=== PATIENT | female | born 1945 | race Caucasian/White ===

== ENCOUNTER 2023-08-05 09:24 | Day surgery (SDC) | payer MEDICARE, SELFPAY ==
[2023-08-05 09:37] VITALS: BP 139/87; PULSE 79; RESP 18; TEMP 36.7; O2SAT 96
[2023-08-05] MEDS: Tropicam./Phenyleph. (1/2.5%) 5 ML BTL OS ×3 (09:57→10:07)
--- NOTE | 2023-08-05 10:07 | ANES.PREOP_ITS ---
General Info Date of Service Date Performed: 08/05/23 Height: 5 ft Weight: 91.8 kg Body Mass Index (BMI): 39.5 Surgical Procedure: Operation Date: 08/05/23 12:40 Proposed Procedure Side Surgeon p Cataract Extraction with IOL Implant Left Martín Cobian MD Meds Allergies and Home Medications Allergies Allergy/AdvReac Type Severity Reaction Status Date / Time No Known Allergies Allergy Verified 08/05/23 09:49 Home Medication Medication Instructions Recorded calcium 600 mg capsule 600 mg PO DAILY 08/03/23 fluoxetine 20 mg capsule 20 mg PO DAILY 08/03/23 fluoxetine 40 mg capsule 40 mg PO DAILY 08/03/23 ibuprofen 200 mg tablet 200 mg PO DAILY 08/03/23 levothyroxine 75 mcg tablet 75 mcg PO DAILY 08/03/23 rosuvastatin 10 mg tablet 10 mg PO DAILY 08/03/23 trazodone 50 mg tablet 50 mg PO HS 08/03/23 Current Visit Medications: Current Medications Generic Name Dose Route Start Last Admin Trade Name Freq PRN Reason Stop Dose Admin Acetaminophen 1,000 mg 08/05/23 06:00 Acetaminophen 500 Mg Tab PO 09/04/23 05:59 Q4H PRN PRN Balanced Salt Solution 500 ml 08/05/23 06:00 Balanced Salt Soln.-Plus 500 Ml Bag OP 09/04/23 05:59 DIRECTED [facility] Miscellaneous Medication 0 ml 08/05/23 06:00 Prednisolone 1%, Moxifloxacin 0.5%, Nepafenac 0.1% 5ml Btl OS 09/04/23 05:59 DIRECTED [facility] Miscellaneous Medication 0 ml 08/05/23 06:00 08/05/23 10:02 Tropicam./Phenyleph. 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 eye H25.042 Medical History Medical History Arthritis Bladder incontinence Depression HLD (hyperlipidemia) Insomnia Thyroid dysfunction Surgical History Surgical History (Updated 08/05/23 @ 09:49 by Sailaja Tejada RN) Hx of hysterectomy Hx of total knee replacement Tobacco Smoking/Tobacco Use Status: Former Tobacco Use Alcohol Alcohol Intake: never Substance Use Substance use type: does not use Vital Signs and Lab Results Vital Signs Most Recent Vital Signs in EMR: Most Recent Vital Signs Temp Pulse Resp BP Pulse Ox 36.7 C 79 18 139/87 96 08/05/23 09:37 08/05/23 09:37 08/05/23 09:37 08/05/23 09:37 08/05/23 09:37 Lab Results Blood Type / Crossmatch: No Data to Display Complete Blood Count: No Data to Display Complete Metabolic Panel: No Data to Display Liver Function Panel: No Data to Display Coagulation Panel: No Data to Display Cardiac Panel: No Data to Display Arterial Blood Gas: No Data to Display Venous Blood Gas: No Data to Display Pancreas Panel: No Data to Display Thyroid Panel: No Data to Display Infectious Disease: No Data to Display Blood Cultures: No Data to Display Toxicology Panel: No Data to Display Anesthesia Assessment and Plan Anesthesia History Personal History: No History of Anesthesia Complications Family History: No Family History of Anesthesia Complications Exercise Tolerance Exercise Tolerance: Metabolic Equivalents>4 Pertinent Negatives Pertinent Negatives: No Symptoms of GERD, No Major Cardiovascular Symptoms or Complaints and No Major Pulmonary Symptoms or Complaints Cardiac & Pulmonary Exam Cardiac Exam: Normal S1/S2 Heart Sounds Pulmonary Exam: Clear Bilateral Breath Sounds Implantable Cardiac Device Does patient have a Pacemaker or an ICD?: No Airway Exam Known Difficult Airway: No Mallampati Class: 3 Mouth Opening: Normal (> 3cm) Thyromental Distance: Greater than 3 cm Neck Range of Motion: Full ROM Neck Circumference: Normal Teeth Condition: Normal Dentition ASA Classification ASA Score: ASA 3 Emergency Case?: No NPO Status NPO Status: NPO Clears >2 hours, Solids >8 hours Anesthesia Plan Resuscitation Status: Full Code Anesthesia Technique: MAC Anesthesia Airway Planned: Natural Airway Monitors Used: Standard Monitors
[2023-08-05 10:26] VITALS: BMI 39.5
[2023-08-05] MEDS: Tetracaine 0.5% 4 ML BTL OS (11:23)
[2023-08-05] MEDS: Povidone-Iodine Ophth 30 ML BTL (11:25)
[2023-08-05] MEDS: Balanced Salt Soln.-PLUS 500 ML BAG OP (11:28)
[2023-08-05] MEDS: Phenylephrine/Lidocaine (15/10) MG/ML 1 ML VIAL (11:28)
[2023-08-05] MEDS: Duovisc Viscoelastic System EACH 1 EACH (11:28)
[2023-08-05] MEDS: Lidocaine 1% Pres-Free 5 ML VIAL (11:28)
[2023-08-05 11:46] VITALS: BP 125/96; PULSE 67; RESP 18; TEMP 36.8; O2SAT 96
--- NOTE | 2023-08-05 11:47 | PDOC.DSDIS_ITS ---
Date of service: 08/05/23 Time of Service: 11:47 Discharge Plan Disposition Patient Disposition: Home Discharge Details Attending Provider: Martín Cobian Primary Care Provider: Shaji Mcmanus [facility] (Former[facility]) and New Rx's Prescriptions: No Action fluoxetine 40 mg Capsule 40 mg PO DAILY calcium 600 mg Capsule 600 mg PO DAILY trazodone 50 mg Tablet 50 mg PO HS levothyroxine 75 mcg Tablet 75 mcg PO DAILY ibuprofen 200 mg Tablet 200 mg PO DAILY fluoxetine 20 mg Capsule 20 mg PO DAILY rosuvastatin 10 mg Tablet 10 mg PO DAILY Discharge Instructions Stand Alone Forms: Post-op Topical Cataract, Mary Wilson ([facility]) Discharge Orders Discharge Orders: Discharge Order (Routine); Ordered 08/05/23 Ordered By: Martín Cobian DS: Diagnosis Discharge Diagnosis (1) Nuclear age-related cataract, left eye: Status: Resolved (2) Cortical age-related cataract, left eye: Status: Resolved (3) Posterior subcapsular age-related cataract of left eye: Status: Resolved
--- NOTE | 2023-08-05 11:50 | ROE_ITS ---
Date of service: 08/05/23 Time of Service: 11:50 Operative Note Operative Note DATE OF PROCEDURE: 08/05/23 PRE-OP DIAGNOSIS: Nuclear/cortical/posterior subcapsular cataract, left eye POST-OP DIAGNOSIS: same PROCEDURE: Cataract extraction using phacoemulsification with intraocular lens implant, left eye SURGEON: Martín Cobian ANESTHESIA TYPE: Local By Surgeon and MAC Refer to Anesthesia Record PATHOLOGY: none sent COMPLICATIONS: None Patient was transported to: same day Patient's condition: stable Implants: Nolberto Clareon [id number] Indications: Progressive decreased vision due to cataract, left eye Procedure Description: CATARACT SURGERY OPERATIVE REPORT PREOPERATIVE DIAGNOSIS: Nuclear/cortical/posterior subcapsular cataract, left eye POSTOPERATIVE DIAGNOSIS: Same OPERATION: Cataract extraction using phacoemulsification with posterior chamber intraocular lens implant, left eye. IOL: IOL Byproducts Maker/Model: Nolberto Clareon [id number] IOL Power: + 22.0 diopters IOL Serial Number: [id number] Optic Diameter: 6.0mm Haptic/Overall Diameter: 13.0mm PHACO INFO: Nolberto[employer]awar Entertainment[employer]ion Vision System with OZil and Active Fluidics Cumulative Dispersed Energy (CDE): 7.34 seconds SURGEON: Martín Cobian MD, KOJO ANESTHESIA: Monitored Anesthesia Care (MAC), with local sub-tenon's anesthetic infiltration COMPLICATIONS: None SPECIMENS: None INDICATIONS FOR PROCEDURE: The patient is a 77-year-old lady with history of diminished visual acuity in her left eye secondary to the development of nuclear/cortical/posterior subcapsular cataract. She is significantly symptomatic that she desires cataract surgery and attempt to improve and maximize her vision. The option of cataract surgery was offered to the patient and she wished to proceed. See office notes for detailed information. PROCEDURE: The correct surgical eye was identified and marked as the left eye and the pupil was dilated in the preoperative area using mydriatics and cycloplegics. The dilated pupil size was 7.0 mm. The patient elected to pr oceed without oral sedation. The patient was brought to the operating room where cardiopulmonary monitoring was instituted and surgical time-out was performed, confirming the correct operative eye and IOL power. Topical anesthesia was administered and ophthalmic povidone-iodine 5% was instilled into the conjunctival fornices. The vlad-ocular area was prepped with Betadine 10% solution and draped in the usual sterile fashion for intraocular surgery, including an aperture drape. A Tegaderm transparent film dressing was cut in half and used to cover the lashes and lid margins. Care was taken to sequester the lashes and lid margins under the Tegaderm dressing. A lid speculum was placed between the lids of the operative eye and the Nolberto LuxOR Revalia operating microscope was maneuvered into position. Norbert scissors were then used to make a conjunctival buttonhole approximately 6mm posterior to the limbus in the inferonasal quadrant. Blunt dissection was carried out to expose bare sclera, and a blunt-tipped sub-tenon?s anesthesia cannula was introduced and passed posteriorly along the globe where non- preserved plain lidocaine was injected into posterior sub-Tenon?s space. A sideport knife was used to make a paracentesis port. Intraocular phenylephrine/lidocaine was injected into the anterior chamber. The anterior chamber was then filled with viscoelastic. A keratome knife was used construct a two-plane clear corneal tunnel extending 2.0mm into clear cornea. A flap was raised on the anterior capsule and capsulorhexis forceps were used to complete a continuous curvilinear capsulorhexis of 5.5 mm. Balanced salt solution was then used to perform cortical cleaving hydrodissection and nuclear hydrodelineation until the lens could be freely rotated within the capsular bag. The lens nucleus was then disassembled and removed within the capsular bag and iris plane using phacoemulsification. Residual cortical material was removed using the irrigation/aspiration handpiece. The posterior capsule was carefully polished to remove as much residual lens epithelial cells as safely possible. The capsular bag was then inflated and the anterior chamber deepened with viscoelastic. The lens implant described above was inserted into the capsular bag using the Nolberto Autonome Injector. A Kuglen hook was used to dial the IOL into position. Residual viscoelastic was then removed first from posterior to the IOL, then from the anterior chamber using the I/A handpiece. The lens implant was noted to center nicely within the capsular bag. The incisions were stromally hydrated, and the anterior chamber was reformed using BSS. Then 0.5cc of moxifloxacin 1.0mg/ml were injected into the capsular bag and anterior chamber. The incisions were checked with a Weck spear and found to be secure. Several drops of ophthalmic povidone-iodine 5% were then applied to the eye followed by two drops of Imprimis combination prednisolone/moxifloxacin/nepafenac solution. The drapes were removed and a clear plastic protective eye shield was placed over the eye. The patient was then returned to Same Day Surgery in stable condition.
--- NOTE | 2023-08-05 11:56 | W.ANESPOSTOP ---
Postoperative Evaluation Date, Time and Location Date Performed: 08/05/23 Time Performed: 11:57 Patient Location: Day Surgery Unit Vital Signs Most Recent Imported Vital Signs: Most Recent Vital Signs Temp Pulse Resp BP Pulse Ox 36.8 C 67 18 125/96 H 96 08/05/23 11:46 08/05/23 11:46 08/05/23 11:46 08/05/23 11:46 08/05/23 11:46 Pain Score Most Recent Pain Score: Most Recent Pain Score Pain Level 0 08/05/23 11:46 Assessment Mental Status: Awake (Alert & Oriented to Patient Baseline) Airway and Respiratory Function: Patent airway with normal (patient baseline) respiratory exam Cardiovascular Function: Hemodynamically Stable Hydration Status: Adequately Hydrated Nausea & Vomiting: No Nausea or Vomiting Pain: Pt. Denies Any Pain Peripheral Nerve Block: Patient did not receive a nerve block
--- NOTE | 2023-08-05 12:00 | W.ANESPOSTOP ---
Postoperative Evaluation Date, Time and Location Date Performed: 08/05/23 Time Performed: 12:00 Patient Location: Day Surgery Unit Vital Signs Most Recent Imported Vital Signs: Most Recent Vital Signs Temp Pulse Resp BP Pulse Ox 36.8 C 67 18 125/96 H 96 08/05/23 11:46 08/05/23 11:46 08/05/23 11:46 08/05/23 11:46 08/05/23 11:46 Most Recent Vital Signs Temp Pulse Resp BP Pulse Ox 36.8 C 67 18 125/96 H 96 08/05/23 11:46 08/05/23 11:46 08/05/23 11:46 08/05/23 11:46 08/05/23 11:46 Pain Score Most Recent Pain Score: Most Recent Pain Score Pain Level 0 08/05/23 11:46 Assessment Mental Status: Awake (Alert & Oriented to Patient Baseline) Airway and Respiratory Function: Patent airway with normal (patient baseline) respiratory exam Cardiovascular Function: Hemodynamically Stable Hydration Status: Adequately Hydrated Nausea & Vomiting: No Nausea or Vomiting Pain: Pt. Denies Any Pain Peripheral Nerve Block: Patient did not receive a nerve block
== END 2023-08-05 12:05 | disposition home or self-care (01) ==
LOC: SUR 09:25
PROVIDERS: PCP Internal Medicine; Visit Provider Ophthalmology
PROC: (CPT 66984; principal; 2023-08-05 12:30)
DX: H25.12 Age-related nuclear cataract, left eye (principal); H25.012 Cortical age-related cataract, left eye; H25.042 Posterior subcapsular polar age-related cataract, left eye
CPT/HCPCS: 66984; V2632

== ENCOUNTER 2023-08-19 09:28 | Day surgery (SDC) | payer MEDICARE, SELFPAY ==
--- NOTE | 2023-08-19 06:48 | HPE_ITS ---
Assessment and Plan Assessment and plan (1) Posterior subcapsular age-related cataract, right eye: Status: Acute Assessment and plan: Assessment: Visually significant cataract of the right eye. Plan: Cataract extract with lens implantation of the right eye. (2) Cortical age-related cataract, right eye: Status: Acute Assessment and plan: Assessment: Visually significant cataract of the right eye. Plan: Cataract extract with lens implantation of the right eye. (3) Nuclear age-related cataract, right eye: Status: Acute Assessment and plan: Assessment: Visually significant cataract of the right eye. Plan: Cataract extract with lens implantation of the right eye. History of Present Illness History of Present Illness Chief Complaint: Progressive decreased vision, right eye Narrative: The patient is a 76-year-old lady referred with complaints of progressive decreased vision in both eyes. She notes difficulty with blurred vision at both distance and near. She can no longer thread a needle. She cannot drive at night due to glare, and even has difficulty in daytime due to severe glare. On examination she was noted to have visually significant bilateral cataract, and underwent cataract surgery in the left eye on 08/05/2023. Postoperatively, she has regained uncorrected visual acuity of 20/20 in the left eye. She now presents for cataract surgery in the right eye. Review of Systems All systems reviewed & are unremarkable except as noted in HPI and below PFSH All Active Problems Posterior subcapsular age-related cataract, right eye (Acute) Cortical age-related cataract, right eye (Acute) Nuclear age-related cataract, right eye (Acute) Medical History Insomnia Bladder incontinence Thyroid dysfunction HLD (hyperlipidemia) Depression Arthritis Surgical History Hx of total knee replacement Hx of hysterectomy Social History Smoking/Tobacco Use Status: Former Tobacco Use Quit Date: 10/31/82 Smoking risk assessment performed?: Yes Alcohol Intake: never Substance use type: does not use Housing: house Do you feel safe at home: Yes Do you feel safe in your relationship?: Yes Meds Allergies and Home Medications Allergies Allergy/AdvReac Type Severity Reaction Status Date / Time No Known Allergies Allergy Verified 08/19/23 09:44 Home Medications Medication Instructions Recorded Confirmed Type calcium 600 mg capsule 600 mg PO DAILY 08/03/23 08/19/23 History fluoxetine 20 mg capsule 20 mg PO DAILY 08/03/23 08/19/23 History fluoxetine 40 mg capsule 40 mg PO DAILY 08/03/23 08/19/23 History ibuprofen 200 mg tablet 200 mg PO DAILY 08/03/23 08/19/23 History levothyroxine 75 mcg tablet 75 mcg PO DAILY 08/03/23 08/19/23 History rosuvastatin 10 mg tablet 10 mg PO DAILY 08/03/23 08/19/23 History trazodone 50 mg tablet 50 mg PO HS 08/03/23 08/19/23 History Exam Eyes Other: Most recent ophthalmic examination is significant for corrected visual acuity of 20/20 in the right eye, but with moderate glare disability. Uncorrected visual acuity is 20/20 in the left eye. Intraocular pressure is 10 OU. Extraocular motility is normal. Pupillary exam is normal. Slit-lamp examination reveals mild cortical cataract in the right eye with moderate nuclear and posterior subcapsular cataract. The left eye has a well- positioned PCIOL with clear posterior capsule. Dilated funduscopic examination reveals disc cupping of 0.45 OU with normal vessels, macula, peripheral retina and vitreous. In the left eye there is a 1 disc diameter choroidal nevus superior to the macula. Resp Auscultation: clear to auscultation bilaterally Cardio Rate: regular rate Rhythm: regular rhythm
[2023-08-19 09:35] VITALS: BP 135/88; PULSE 71; RESP 18; TEMP 36.5; O2SAT 95
[2023-08-19] MEDS: Tropicam./Phenyleph. (1/2.5%) 5 ML BTL OD ×3 (09:52→09:59)
--- NOTE | 2023-08-19 10:02 | W.ANESPRE ---
General Info Date of Service Date Performed: 08/19/23 Height: 5 ft Weight: 93.7 kg Body Mass Index (BMI): 40.3 Surgical Procedure: Operation Date: 08/19/23 12:40 Proposed Procedure Side Surgeon p Cataract Extraction with IOL Implant Right Martín Cobian MD Meds Allergies and Home Medications Allergies Allergy/AdvReac Type Severity Reaction Status Date / Time No Known Allergies Allergy Verified 08/19/23 09:44 Home Medication Medication Instructions Recorded calcium 600 mg capsule 600 mg PO DAILY 08/03/23 fluoxetine 20 mg capsule 20 mg PO DAILY 08/03/23 fluoxetine 40 mg capsule 40 mg PO DAILY 08/03/23 ibuprofen 200 mg tablet 200 mg PO DAILY 08/03/23 levothyroxine 75 mcg tablet 75 mcg PO DAILY 08/03/23 rosuvastatin 10 mg tablet 10 mg PO DAILY 08/03/23 trazodone 50 mg tablet 50 mg PO HS 08/03/23 Current Visit Medications: Current Medications Generic Name Dose Route Start Last Admin Trade Name Freq PRN Reason Stop Dose Admin Acetaminophen 1,000 mg 08/19/23 06:00 Acetaminophen 500 Mg Tab PO 09/18/23 05:59 Q4H PRN PRN Balanced Salt Solution 500 ml 08/19/23 06:00 Balanced Salt Soln.-Plus 500 Ml Bag OP 09/18/23 05:59 DIRECTED [facility] Miscellaneous Medication 0 ml 08/19/23 06:00 Prednisolone 1%, Moxifloxacin 0.5%, Nepafenac 0.1% 5ml Btl OD 09/18/23 05:59 DIRECTED [facility] Miscellaneous Medication 0 ml 08/19/23 06:00 08/19/23 09:59 Tropicam./Phenyleph. (1/2.5%) 5 Ml Btl OD 09/18/23 05:59 1 drp DIRECTED [facility] Administration Tetracaine HCl 0 ml 08/19/23 06:00 Tetracaine 0.5% 4 Ml Btl OD 09/18/23 05:59 DIRECTED [facility] PFSH Active Problems Active Problems: Problem Status Onset Code Posterior subcapsular age-related cataract, right eye H25.041 Cortical age-related cataract, right eye H25.011 Nuclear age-related cataract, right eye H25.11 Nuclear age-related cataract, left eye H25.12 Cortical age-related cataract, left eye H25.012 Posterior subcapsular age-related cataract of left eye H25.042 Medical History Medical History Insomnia Bladder incontinence Thyroid dysfunction HLD (hyperlipidemia) Depression Arthritis Surgical History Surgical History Hx of total knee replacement Hx of hysterectomy Tobacco Smoking/Tobacco Use Status: Former Tobacco Use Alcohol Alcohol Intake: never Substance Use Substance use type: does not use Vital Signs and Lab Results Vital Signs Most Recent Vital Signs in EMR: Most Recent Vital Signs Temp Pulse Resp BP Pulse Ox 36.5 C 71 18 135/88 95 08/19/23 09:35 08/19/23 09:35 08/19/23 09:35 08/19/23 09:35 08/19/23 09:35 Lab Results Blood Type / Crossmatch: No Data to Display Complete Blood Count: No Data to Display Complete Metabolic Panel: No Data to Display Liver Function Panel: No Data to Display Coagulation Panel: No Data to Display Cardiac Panel: No Data to Display Arterial Blood Gas: No Data to Display Venous Blood Gas: No Data to Display Pancreas Panel: No Data to Display Thyroid Panel: No Data to Display Infectious Disease: No Data to Display Blood Cultures: No Data to Display Toxicology Panel: No Data to Display Anesthesia Assessment and Plan Anesthesia History Personal History: No History of Anesthesia Complications Family History: No Family History of Anesthesia Complications Exercise Tolerance Exercise Tolerance: Metabolic Equivalents>4 Pertinent Negatives Pertinent Negatives: No Major Cardiovascular Symptoms or Complaints and No Major Pulmonary Symptoms or Complaints Cardiac & Pulmonary Exam Cardiac Exam: Normal S1/S2 Heart Sounds Pulmonary Exam: Clear Bilateral Breath Sounds Implantable Cardiac Device Does patient have a Pacemaker or an ICD?: No Airway Exam Known Difficult Airway: No Mallampati Class: 3 Mouth Opening: Normal (> 3cm) Thyromental Distance: Greater than 3 cm Neck Range of Motion: Full ROM Neck Circumference: Normal Teeth Condition: Normal Dentition ASA Classification ASA Score: ASA 3 Emergency Case?: No NPO Status NPO Status: NPO Clears >2 hours, Solids >8 hours Anesthesia Plan Resuscitation Status: Full Code Anesthesia Technique: MAC Anesthesia Airway Planned: Natural Airway Monitors Used: Standard Monitors
[2023-08-19 10:04] VITALS: BMI 40.3
[2023-08-19] MEDS: Balanced Salt Soln.-PLUS 500 ML BAG OP (11:10)
[2023-08-19] MEDS: Tetracaine 0.5% 4 ML BTL OD (11:11)
[2023-08-19] MEDS: Lidocaine 1% Pres-Free 5 ML VIAL (11:11)
[2023-08-19] MEDS: Duovisc Viscoelastic System EACH 1 EACH (11:12)
[2023-08-19] MEDS: Phenylephrine/Lidocaine (15/10) MG/ML 1 ML VIAL (11:13)
[2023-08-19] MEDS: Povidone-Iodine Ophth 30 ML BTL (11:13)
[2023-08-19 11:29] VITALS: BP 136/64; PULSE 64; RESP 18; TEMP 36.5; O2SAT 97
--- NOTE | 2023-08-19 11:31 | W.PM.DSUDISC ---
Date of service: 08/19/23 Time of Service: 11:31 Discharge Plan Disposition Patient Disposition: Home Discharge Details Attending Provider: Martín Cobian Primary Care Provider: Shaji Mcmanus [facility] and New Rx's Prescriptions: No Action fluoxetine 40 mg Capsule 40 mg PO DAILY calcium 600 mg Capsule 600 mg PO DAILY trazodone 50 mg Tablet 50 mg PO HS levothyroxine 75 mcg Tablet 75 mcg PO DAILY ibuprofen 200 mg Tablet 200 mg PO DAILY fluoxetine 20 mg Capsule 20 mg PO DAILY rosuvastatin 10 mg Tablet 10 mg PO DAILY Discharge Instructions Stand Alone Forms: Post-op Topical Cataract, Mary Wilson ([facility]) Discharge Orders Discharge Orders: Discharge Order (Routine); Ordered 08/19/23 Ordered By: Martín Cobian DS: Diagnosis Discharge Diagnosis (1) Posterior subcapsular age-related cataract, right eye: Status: Resolved (2) Cortical age-related cataract, right eye: Status: Resolved (3) Nuclear age-related cataract, right eye: Status: Resolved
--- NOTE | 2023-08-19 11:32 | ROE_ITS ---
Date of service: 08/19/23 Time of Service: 11:32 Operative Note Operative Note DATE OF PROCEDURE: 08/19/23 PRE-OP DIAGNOSIS: Nuclear/cortical/posterior subcapsular cataract, right eye POST-OP DIAGNOSIS: same PROCEDURE: Cataract extraction using phacoemulsification with intraocular lens implant, right eye SURGEON: Martín Cobian ANESTHESIA TYPE: Local By Surgeon and MAC Refer to Anesthesia Record ESTIMATED BLOOD LOSS: 0 PATHOLOGY: none sent COMPLICATIONS: None Patient was transported to: same day Patient's condition: stable Implants: Nolberto Clareon [id number] Indications: Progressive decreased vision due to cataract, right eye Procedure Description: CATARACT SURGERY OPERATIVE REPORT PREOPERATIVE DIAGNOSIS: Nuclear/cortical/posterior subcapsular cataract, right eye POSTOPERATIVE DIAGNOSIS: Same OPERATION: Cataract extraction using phacoemulsification with posterior chamber intraocular lens implant, right eye. IOL: IOL Shank Breaker/Model: Nolberto Clareon [id number] IOL Power: + 21.5 diopters IOL Serial Number: [id number] Optic Diameter: 6.0mm Haptic/Overall Diameter: 13.0mm PHACO INFO: Nolberto Tellwikiurion Vision System with OZil and Active Fluidics Cumulative Dispersed Energy (CDE): 8.36 seconds SURGEON: Martín Cobian MD, KOJO ANESTHESIA: Monitored Anesthesia Care (MAC), with local sub-tenon's anesthetic infiltration COMPLICATIONS: None SPECIMENS: None INDICATIONS FOR PROCEDURE: The patient is a 77-year-old lady with history of diminished visual acuity in her right eye secondary to the development of nuclear/cortical/posterior subcapsular cataract. She has already undergone cataract surgery in the left eye and is doing well postoperatively. She now presents for cataract surgery in the right eye. See office notes for detailed information. PROCEDURE: The correct surgical eye was identified and marked as the right eye and the pupil was dilated in the preoperative area using mydriatics and cycloplegics. The dilated pupil size was 7.0 mm. The patient elected to proceed without oral sedation. The patient was brought to the operating room where cardiopulmonary monitoring was instituted and surgical time-out was performed, confirming the correct operative eye and IOL power. Topical anesthesia was administered and ophthalmic povidone-iodine 5% was instilled into the conjunctival fornices. The vlad-ocular area was prepped with Betadine 10% solution and draped in the usual sterile fashion for intraocular surgery, including an aperture drape. A Tegaderm transparent film dressing was cut in half and used to cover the lashes and lid margins. Care was taken to s equester the lashes and lid margins under the Tegaderm dressing. A lid speculum was placed between the lids of the operative eye and the Alcira-Yadira operating microscope was maneuvered into position. Norbert scissors were then used to make a conjunctival buttonhole approximately 6mm posterior to the limbus in the inferonasal quadrant. Blunt dissection was carried out to expose bare sclera, and a blunt-tipped sub-tenon?s anesthesia cannula was introduced and passed posteriorly along the globe where non- preserved plain lidocaine was injected into posterior sub-Tenon?s space. A sideport knife was used to make a paracentesis port. Intraocular phenylephrine/lidocaine was injected into the anterior chamber. The anterior chamber was then filled with viscoelastic. A keratome knife was used to construct a two--plane clear corneal tunnel extending 2.0mm into clear cornea. A flap was raised on the anterior capsule and capsulorhexis forceps were used to complete a continuous curvilinear capsulorhexis of 5.0 mm. Balanced salt solution was then used to perform cortical cleaving hydrodissection and nuclear hydrodelineation until the lens could be freely rotated within the capsular bag. The lens nucleus was then disassembled and removed within the capsular bag and iris plane using phacoemulsification. Residual cortical material was removed using the I/A handpiece. The posterior capsule was carefully polished to remove as much residual lens epithelial cells as safely possible. The capsular bag was then inflated and the anterior chamber deepened with cohesive viscoelastic. The lens implant described above was inserted into the capsular bag using the Nolberto Autonome Injector. A Kuglen hook was used to dial the IOL into position. Residual viscoelastic was then removed first from posterior to the IOL, then from the anterior chamber using the I/A handpiece. The lens implant was noted to center nicely within the capsular bag. The incisions were stromally hydrated, and the anterior chamber was reformed using BSS. Then 0.5cc of moxifloxacin 1.0mg/ml were injected into the capsular bag and anterior chamber. The incisions were checked with a Weck spear and found to be secure. Several drops of ophthalmic povidone-iodine 5% were then applied to the eye followed by two drops of Imprimis combination prednisolone/moxifloxacin/nepafenac solution. The drapes were removed and a clear plastic protective eye shield was placed over the eye. The patient was then returned to [facility] in stable condition.
--- NOTE | 2023-08-19 12:22 | W.ANESPOSTOP ---
Postoperative Evaluation Date, Time and Location Date Performed: 08/19/23 Time Performed: 11:40 Patient Location: Day Surgery Unit Vital Signs Most Recent Imported Vital Signs: Most Recent Vital Signs Temp Pulse Resp BP Pulse Ox 36.5 C 64 18 136/64 97 08/19/23 11:29 08/19/23 11:29 08/19/23 11:29 08/19/23 11:29 08/19/23 11:29 Pain Score Most Recent Pain Score: Most Recent Pain Score Pain Level 0 08/19/23 11:29 Assessment Mental Status: Awake (Alert & Oriented to Patient Baseline) Airway and Respiratory Function: Patent airway with normal (patient baseline) respiratory exam Cardiovascular Function: Hemodynamically Stable Hydration Status: Adequately Hydrated Nausea & Vomiting: No Nausea or Vomiting Pain: Pt. Denies Any Pain Peripheral Nerve Block: Patient did not receive a nerve block
== END 2023-08-19 11:50 | disposition home or self-care (01) ==
LOC: SUR 09:29
PROVIDERS: PCP Internal Medicine; Visit Provider Ophthalmology
PROC: (CPT 66984; principal; 2023-08-19 12:30)
DX: H25.041 Posterior subcapsular polar age-related cataract, right eye (principal); H25.011 Cortical age-related cataract, right eye; H25.11 Age-related nuclear cataract, right eye; Z98.42 Cataract extraction status, left eye
CPT/HCPCS: 66984; 00123; V2632